=== PATIENT | female | born 2005 | race Caucasian/White ===

== ENCOUNTER 2024-01-05 18:46 | Emergency (ER) | payer OTHER, SELFPAY ==
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
[2024-01-05 19:00] VITALS: BP 115/65; PULSE 65; RESP 18; TEMP 37; O2SAT 99
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
== END 2024-01-05 20:10 | disposition home or self-care (01) ==
PROVIDERS: Emergency Provider Nurse Practitioner Family; PCP Family Medicine
DX: S63.616A Unspecified sprain of right little finger, initial encounter (principal); Y04.0XXA Assault by unarmed brawl or fight, initial encounter
CPT/HCPCS: 73130; 99213; G0463